=== PATIENT | female | born 1950 | race Caucasian/White ===

== ENCOUNTER 2021-10-28 10:46 | Outpatient (CLI) | payer MEDICARE, SELFPAY ==
--- NOTE | 2021-10-28 11:10 | XR_ITS ---
WS: [id number] SCREENING DEXA SCAN [place] CLINICAL INFORMATION: POST MENOPAUSAL COMPARISON: None. FINDINGS: The L1-L4 bone mineral density measures 0.972 g/cm2. This corresponds to a T score score of -1.7 and Z score of -0.6. Left femoral neck bone mineral density measures 0.825 g/cm2. This corresponds to a T score of -1.5 an d Z score of -0.4. Right femoral neck bone mineral density measures 0.800 g/cm2. This corresponds to a T score -1.6of an d Z score of -0.6. Mean femoral neck bone mineral density measures 0.813 g/cm2. This corresponds to a T score of -1.5 an d Z score of -0.5. XR/XR DEXA axial skeleton* [id number] IMPRESSION: Osteopenia. Patient's FRAX calculated 10 year probability for major osteoporotic fracture i s 20.2 % and osteoporotic hip fracture is 5.2%.
== END 2021-10-28 10:47 | disposition home or self-care (01) ==
PROVIDERS: PCP Physician Assistant; Visit Provider Physician Assistant
DX: Z78.0 Asymptomatic menopausal state (principal); M85.80 Other specified disorders of bone density and structure, unspecified site
CPT/HCPCS: 77080

== ENCOUNTER 2022-02-03 08:51 | Outpatient (CLI) | payer MEDICARE, SELFPAY ==
--- NOTE | 2022-02-03 09:02 | MM_ITS ---
WS: [id number] BILATERAL SCREENING DIGITAL BREAST TOMOSYNTHESIS MAMMOGRAM WITH CAD HISTORY: SCREENING COMPARISON: 07/07/2017, 09/22/2013 Bilateral CC and MLO views with tomosynthesis and synthetic mammography submitted. Computer aided det ection analyzed. Breast composition: There are scattered areas of fibroglandular density. No suspicious masses, microc alcifications or architectural distortion. Mild asymmetry in the posterior central LEFT breast is sta ble over multiple prior examinations. Asymmetry in the upper outer quadrant of the RIGHT breast is al so stable. MM/[place] [id number] IMPRESSION: BI-RADS: 2-Benign FOLLOW UP: 1 Year Follow-up
== END 2022-02-03 08:52 | disposition home or self-care (01) ==
LOC: RAD 08:55
PROVIDERS: PCP Physician Assistant; Visit Provider Physician Assistant
DX: Z12.31 Encounter for screening mammogram for malignant neoplasm of breast (principal)
CPT/HCPCS: 77063; 77067

== ENCOUNTER 2022-05-20 08:51 | Outpatient (RCR) | payer MEDICARE, OTHER, SELFPAY | END 2022-05-29 23:59 | disposition home or self-care (01) | LOC: SPT 08:51 | PROVIDERS: PCP Physician Assistant; Visit Provider Physician Assistant | DX: M54.50 Low back pain, unspecified (principal) | CPT/HCPCS: 97110; 97162 ==

== ENCOUNTER 2022-05-30 06:00 | Outpatient (RCR) | payer MEDICARE, OTHER, SELFPAY | END 2022-06-29 23:59 | disposition home or self-care (01) | LOC: SPT 06:00 | PROVIDERS: PCP Physician Assistant; Visit Provider Physician Assistant | DX: M54.50 Low back pain, unspecified (principal) | CPT/HCPCS: 97110 ==

== ENCOUNTER 2022-06-30 06:00 | Outpatient (RCR) | payer MEDICARE, OTHER, SELFPAY | END 2022-07-21 16:46 | disposition home or self-care (01) | LOC: SPT 06:00 | PROVIDERS: PCP Physician Assistant; Visit Provider Physician Assistant | DX: M54.50 Low back pain, unspecified (principal) | CPT/HCPCS: 97110; 97530 ==

== ENCOUNTER 2022-12-15 12:22 | Emergency (ER) | payer MEDICARE, OTHER, SELFPAY ==
[2022-12-15] VITALS (18 sets, daily range): BP systolic 140–187; BP diastolic 70–98; PULSE 70–90; RESP 15–23; TEMP 36.9; O2SAT 90–96
--- NOTE | 2022-12-15 12:48 | CT_ITS ---
WS: [email or web address] CT HEAD NONCONTRAST HISTORY: Symptoms of acute stroke TECHNIQUE: Contiguous axial imaging performed through the brain in 2.5 mm imaging. Bone and soft tiss ue windows. Sagittal and coronal reformats reviewed. All CT scans at [facility] use at least one of these dose optimization techniques: automated exposure control; mA and/or kV adjustment per pa tient size (includes targeted exams where dose is matched to clinical indication); or iterative recon struction. DLP: 1076.98 mGy-cm. COMPARISON: None available. Acute intracranial blood is identified. Acute blood products are noted in the posterior fossa surroun ding the brainstem and posterior to the cerebellum. Blood layering along the tentorium. Blood within the ambient, quadrigeminal and basal cisterns and extending through the fourth ventricle and over the tentorium. Intraventricular blood layering in the occipital horns the lateral ventricles and in the fourth ventricle. Mild atrophy. Sulcal effacement noted bilaterally with no midline shift. Ventricles: Ventricles are dilated. Temporal horns are dilated consistent with developing hydrocepha rossana. Paranasal sinuses: As visualized are clear. Mastoid air cells: Well pneumatized. Calvarium and scalp: Skull is intact with no soft tissue edema or swelling. CT/CT head thrombolytic [id number] IMPRESSION: 1. Acute intracranial hemorrhage. Perimesencephalic subarachnoid hemorrhage. A cute subarachnoid and intraventricular hemorrhage with probable components of s ubdural blood also. Blood is predominantly filling the quadrigeminal plate cist jay and within the basal and ambient cisterns. Additional acute blood products in the lateral ventricles surrounding the brainstem and fourth ventricle. 2. Cerebral edema. No midline shift. Notified Krish Hanks DO at 12/15/2022 1:18 PM.
--- NOTE | 2022-12-15 12:48 | CT_ITS ---
WS: [id number] CT CERVICAL SPINE HISTORY: fall TECHNIQUE: Contiguous 2.0 mm axial imaging performed through the entire cervical spine. Sagittal and coronal reformats also performed. All CT scans at [facility] use at least one of these dose o ptimization techniques: automated exposure control; mA and/or kV adjustment per patient size (include s targeted exams where dose is matched to clinical indication); or iterative reconstruction. DLP: 221.53 mGy.cm COMPARISON: None available. Normal cervical alignment. Craniocervical junction, atlantodental interval and C1-C2 alignment is nor mal. C2-C3: Normal. C3-C4: Normal. C4-C5: Osteophytic ridging. Mild facet arthritis. C5-C6: Mild osteophytic ridging and facet arthritis. Mild bilateral foraminal stenosis. C6-C7: Normal. C7-T1: Normal. Lung apices are clear. Mild atherosclerosis aorta. Acute blood products are identified surrounding th e brainstem and in the posterior fossa. These were described on the recent head CT. CT/CT cervical spin wo con* [id number] IMPRESSION: No acute cervical spine fracture.
--- NOTE | 2022-12-15 12:50 | XR_ITS ---
WS: [email or web address] Chest AP portable with right rib detail, 12/15/2022 Clinical Data: fall, right side pain, cough Comparison: Two-view chest, 01/01/2017. Findings: The lungs show no nodules, masses, or effusions. The heart is normal. No pneumonia or pneumothorax is seen. The aortic arch and descending thoracic aorta show tortuosity. There are monitor leads on the chest w all. The ribs are intact. No rib fractures seen. No subcutaneous emphysema is present. XR/XR ribs RT mn 3V w CXR1V [id number] Impression: Negative chest with right rib detail.
--- NOTE | 2022-12-15 12:51 | W.ED.NEUROSD ---
HPI - Neuro Symptoms/Deficit General: Chief Complaint: Neuro Symptoms/Deficit Stated Complaint: FALL/ AMS Time Seen by Provider: 12/15/22 12:39 History of Present Illness: Patient with unknown past medical history who presents emergency department by EMS with a pill bottle for Xanax and lisinopril, unknown past medical history for altered mental status. Patient was last seen well at 1430 yesterday and was spoken to on the phone by family at 1930 last night. Patient was found down at home by her mentally challenged family member this morning around 8 AM. She was found wedged between the bed and the wall with multiple episodes of vomiting, incontinent of bowel and bladder. EMS initially noted the patient to have a GCS of 9 with unreactive pupils bilaterally, blood glucose of 184. Per report from family at bedside the patient suffered a fall outside while gardening on Wednesday landing on the right side of her body complaining of right rib pain, no head, neck, back injury, no loss of consciousness. No other modifying factors, no other associated symptoms. Review of Systems General: Reports: 10 or more systems reviewed and unremarkable except in HPI and below NIH stroke score NIHSS: Level Of Consciousness - 1a: 1 Level Of Consciousness Questions - 1b: One Correct Level Of Consciousness Commands - 1c: Both Correct Best Gaze - 2: Normal Visual [place] - 3: No Visual Loss Facial Palsy - 4: Normal Motor Arm Right - 5: Drift Motor Arm Left - 5: No Drift Motor Leg Right - 6: Drift Motor Leg Left - 6: Drift Limb Ataxia - 7: Absent Sensory - 8: Normal Best Language - 9: No Aphasia Dysarthia - 10: Mild/Moderate Dysarthia Extinction And Inattention - 11: 0 Score: Total Score: 6 Physical Exam Const: GENERAL APPEARANCE: cooperative, disheveled, ill appearing and frail appearing ORIENTATION/CONSCIOUSNESS: Yes oriented to person, Yes oriented to place and Yes confused (Arousable to verbal stimuli); not oriented to time HENMT: COMMON NORMALS: normocephalic, atraumatic, hearing grossly normal bilaterally, external ears normal and Normal external nose present HEAD & SCALP: normocephalic and atraumatic FACE & SINUS: normal facial exam NOSE: Normal external nose present EXTERNAL EAR: Yes external ears normal MOUTH: Normal oral and palatal mucosa present THROAT: posterior oropharynx normal Eye: COMMON NORMALS: Equal, round and reactive pupils present and EOMs intact bilaterally PUPIL: Yes Equal, round and reactive pupils present Neck/C-Spine: COMMON NORMALS: supple GENERAL: Yes normal visual inspection CERVICAL SPINE: No Cervical spine tenderness and No step off deformity Chest: COMMONS NORMALS: normal inspection of the chest CHEST: Yes localized rib tenderness with anteroposterior compression (Right lateral) Resp: COMMON NORMALS: normal respiratory effort, No retractions, No use of accessory muscles and clear to auscultation bilaterally AUSCULTATION: clear to auscultation bilaterally Cardio: COMMON NORMALS: regular rate and Peripheral pulses 2+ throughout RATE: regular rate PERIPHERAL PULSES: Peripheral pulses 2+ throughout GI: COMMON NORMALS: non-tender INSPECTION: Yes abdominal distension PALPATION: Yes Guarding due to palpation present (GI) in the LLQ and in the RLQ : COMMON NORMALS: Yes no CVA tenderness BLADDER/KIDNEY EXAM: Yes no CVA tenderness Back/Pelvis: COMMON NORMALS: no CVA tenderness and thoracic and lumbar spine normal to inspection THORACIC SPINE/UPPER BACK: Yes normal to inspection LUMBAR SPINE/LOWER BACK: Yes normal to inspection Extremity: COMMON NORMALS: normal to inspection and full ROM GENERAL: No clubbing and No cyanosis Neuro: COMMON NORMALS: moves all extremities and no sensory deficits noted SENSORIUM/ORIENTATION: Yes oriented to person, Yes oriented to place and No oriented to time COORDINATION/BALANCE: [id number] test normal SPEECH: abnormal speech Details: slurred, no expressive aphasia and no receptive aphasia GAIT: Yes Unable to assess gait MOTOR EXAM: Abnormal motor strength present (Drift noted right arm, bilateral legs) COORDINATION: [id number] test normal Psych: APPEARANCE: Yes unkempt and Yes disheveled THOUGHT PROCESS: confused Skin: COMMON NORMALS: no rashes or lesions noted GENERAL SKIN EXAM: no rashes or lesions noted Course Reevaluation(s): Reevaluation #1: Patient becoming slightly combative when being moved to helicopter stretcher. Ordered 1 mg IV Ativan. Extensive discussion with helicopter crew regarding plan of intubation here versus possible intubation in the air should this be necessary, they are comfortable intubating the patient in the air, this seems unlikely at this time as the patient is redirectable and following commands. Time: 14:30 Consultations: Consultation #1: Call from radiology, subarachnoid bleed with bleeding around the basal cisterns at the base of the skull, significant edema and intraventricular bleeding, no evidence of shift. We will start Cardene and Keppra. Time: 13:08 Consultation #2: Family at bedside updated on diagnosis and prognosis, advised for need for transfer, family prefers to go to [facility], prefer [facility], will begin calling. Spoke with Dr. Smith neurology at bedside who agrees with plan for Cardene and Keppra, advises no need for mannitol or hypertonic saline at this time. Agrees with plan to hold off on intubation since the patient is following all commands. Confirmed with family that the patient takes no other medications aside from lisinopril and Xanax, no blood thinners. Time: 13:10 Consultation #3: Spoke with [facility] ER Dr. Menjivar who accepted the patient for transfer ER to ER, case discussed, no further recommendations. Time: 13:44 Vital Signs: Vital signs: Vital Signs Temperature 98.4 F 12/15/22 12:36 Pulse Rate 81 12/15/22 12:36 Respiratory Rate 18 12/15/22 12:36 Blood Pressure 187/82 12/15/22 12:36 Pulse Oximetry 92 12/15/22 12:36 Oxygen Delivery Me thod Room Air, Nasal C annula 12/15/22 12:36 MDM - Neuro Symptoms/Deficit Medical Decision Making Immediate concern for CVA versus intracranial bleed given patient's altered mental status, however she is outside the window for tPA, however she would be a candidate for thrombectomy, however her NIH score is relatively low, and much lower if you exclude the 2 points that she receives for bilateral leg weakness. More likely concern is for possible metabolic/infectious process causing patient's altered mental status especially given nausea, vomiting, and diarrhea, in the setting of abdominal distention and guarding, intra-abdominal process including bowel obstruction is considered. Will obtain CT head as well as C-spine given the patient's altered mental status and report of a fall on Wednesday, will obtain full set of labs, chest x-ray with right rib series, update Tdap, with plan for CT abdomen pelvis once patient's labs have resulted and we have confirmed no need for CT angiogram of the head. Lab Data 12/15/22 11:52 12/15/22 11:52 Radiology Impressions Cervical Spine CT 12/15/22 12:48 IMPRESSION: No acute cervical spine fracture. Head CT 12/15/22 12:48 IMPRESSION: 1. Acute intracranial hemorrhage. Perimesencephalic subarachnoid hemorrhage. Acute subarachnoid and intraventricular hemorrhage with probable components of subdural blood also. Blood is predominantly filling the quadrigeminal plate cistern and within the basal and ambient cisterns. Additional acute blood products in the lateral ventricles surrounding the brainstem and fourth ventricle. 2. Cerebral edema. No midline shift. Notified Krish Hanks DO at 12/15/2022 1:18 PM. Ribs X-Ray 12/15/22 12:50 Impression: Negative chest with right rib detail. Laboratory Results WBC 8.6 10^3/uL (4.0-10.0) 12/15/22 11:52 RBC 4.70 10^6/uL (4.1-5.3) 12/15/22 11:52 Hgb 13.6 g/dL (11.5-15.3) 12/15/22 11:52 Hct 42.5 % (37.0-47.0) 12/15/22 11:52 MCV 90.4 fl (81-99) 12/15/22 11:52 MCH 28.9 pg (28.0-34.0) 12/15/22 11:52 MCHC 32.0 g/dL (30.0-36.0) 12/15/22 11:52 RDW 13.2 % (12.1-15.1) 12/15/22 11:52 Plt Count 132 10^3/cmm (130-400) 12/15/22 11:52 MPV 12.9 fL (7.4-10.4) H 12/15/22 11:52 Neut % (Auto) 93.0 % 12/15/22 11:52 Lymph % (Auto) 3.6 % 12/15/22 11:52 [place] % (Auto) 2.8 % 12/15/22 11:52 Eos % (Auto) 0.0 % 12/15/22 11:52 Baso % (Auto) 0.1 % 12/15/22 11:52 Neut # (Auto) 8.00 10^3/uL (1.8-7.7) H 12/15/22 11:52 Lymph # (Auto) 0.3 10^3/uL (0.8-4.8) L 12/15/22 11:52 [place] # (Auto) 0.2 10^3/uL (0.2-0.9) 12/15/22 11:52 Eos # (Auto) 0.0 10^3/uL (0.0-0.8) 12/15/22 11:52 Baso # (Auto) 0.0 10^3/uL (0.0-0.1) 12/15/22 11:52 Nucleated RBC % (auto) 0 % 12/15/22 11:52 Nucleated RBCs # 0.0 /100WBC 12/15/22 11:52 PT 13.40 SECONDS (12.1-14.9) 12/15/22 11:52 INR 0.99 (0.8-1.2) 12/15/22 11:52 APTT 25.1 SECONDS (23.9-36.7) 12/15/22 11:52 Sodium 136 mmol/L (136-145) 12/15/22 11:52 Potassium 3.8 mmol/L (3.5-5.1) 12/15/22 11:52 Chloride 101 mmol/L (98-107) 12/15/22 11:52 Carbon Dioxide 23 mmol/L (22-29) 12/15/22 11:52 Anion Gap 15.8 (5-19) 12/15/22 11:52 BUN 11 mg/dL (8-23) 12/15/22 11:52 Creatinine 0.5 mg/dL (0.5-0.9) 12/15/22 11:52 GFR Calculation 122.0 mL/min (90-130) 12/15/22 11:52 Glucose 176 mg/dL (65-115) H 12/15/22 11:52 POC Glucose 165 mg/dL (70-110) H 12/15/22 13:06 Calculated Osmolality 286 mOsm/kg (285-295) 12/15/22 11:52 Lactic Acid 1.3 mmol/L (0.5-2.2) 12/15/22 13:50 Calcium 9.4 mg/dL (8.5-10.5) 12/15/22 11:52 Total Bilirubin 0.3 mg/dL (0.15-1.2) 12/15/22 11:52 AST 16 U/L (0-32) 12/15/22 11:52 ALT 12 U/L (0-33) 12/15/22 11:52 Alkaline Phosphatase 72 U/L (35-105) 12/15/22 11:52 Total Protein 7.3 g/dL (6.6-8.7) 12/15/22 11:52 Albumin 4.6 g/dL (3.5-5.2) 12/15/22 11:52 Globulin 2.7 g/dL (1.3-4.6) 12/15/22 11:52 Lipase 15 U/L (13-60) 12/15/22 11:52 Critical Care Time Critical Care Time: Critical Care Time: Yes Total Critical Care Time: 79 Attestation: The high probability of a clinically significant, sudden or life threatening deterioration, as referenced in this documentation, required my full and direct attention, intervention and personal management. The critical care time shown is in addition to time spent performing any reported separately billable procedures and includes the following: [x] Data and vital sign review and interpretation [x] Patient assessment, examination and intervention [x] Medication orders and management [x] Patient/Family updates as able [x] Care Coordination and Documentation. Discharge Plan Discharge Patient Disposition: Transfer to ED Clinical Impression: Subarachnoid hemorrhage, Decreased level of consciousness on examination Condition: Stable Prescriptions: No Action citalopram 10 mg tablet 10 mg PO DAILY lisinopril 20 mg tablet 20 mg PO DAILY alprazolam 0.25 mg tablet 0.25 mg PO BID PRN (Reason: Anxiety) amlodipine 10 mg tablet 10 mg PO DAILY Referrals: Selina Penn PA [Primary Care Provider] - Coding Level of Care Code ED Machinery Engineer for Katie Griffin
[2022-12-15 13:02] LABS: Basophils % 0.1 %; Hematocrit 42.5 % (37.0-47.0); Hemoglobin 13.6 g/dL (11.5-15.3); Lymphocytes # 0.3 10^3/uL (0.8-4.8); Lymphocytes % 3.6 %; Mean Corpuscular Hemoglobin 28.9 pg (28.0-34.0); Mean Corpuscular Volume 90.4 fl (81-99); Mean Platelet Volume 12.9 fL (7.4-10.4); Monocytes # 0.2 10^3/uL (0.2-0.9); Monocytes % 2.8 %; Nucleated Red Blood Cells % 0 %; Platelet Count 132 10^3/cmm (130-400); Red Cell Distribution Width 13.2 % (12.1-15.1); White Blood Count 8.6 10^3/uL (4.0-10.0)
--- NOTE | 2022-12-15 13:08 | ECG_ITS ---
[facility] Test Date: 2022-12-15 Pat Name: Beth Kohler Department: Room: Gender: Female Copy Center Operator: : 1950 Requested By: Krish Hanks Order Number: [id number] Nancy MD: Samson Morrison M.D. Measurements Intervals [place] Rate: 75 P: 39 TN: 169 QRS: -12 QRSD: 87 T: 30 QT: 390 QTc: 437 Interpretive Statements SINUS RHYTHM Compared to ECG 01/01/2017 18:21:52 No significant changes Electronically Signed On 12-15-2022 14:48:40 CDT by Samson Morrison M.D. [id number]
[2022-12-15 13:16] LABS: Glucose Point of Care 165 mg/dL (70-110)
[2022-12-15 13:21] LABS: INR 0.99 (0.8-1.2); Partial Thromboplastin Time 25.1 SECONDS (23.9-36.7)
--- NOTE | 2022-12-15 13:24 | P.CONIM_ITS ---
Providers/Reason For Consult Consulting Physician/Specialty*: Rodrigo Smith MD neurology and epilepsy Reason for Consult*: Code stroke and subarachnoid hemorrhage Primary Care Provider: Selina Penn History of Present Illness History of Present Illness Beth Kohler is a 72 year old female who has a history of borderline diabetes and hypertension. The patient lives with her physically and mentally challenged [id number] who is blind. According to the patient's son Anshu who was present in the emergency room, he last spoke with the patient around 9:30 PM on 12/14/2022. Patient's son stated that on 12/11/2022 the patient fell outside and landed on her right side. There was some questionable head trauma but the patient was able to get up and ambulate. On 12/13/2022 the son stated that the patient complained of some nausea and some difficulty breathing but she does have a history of bronchitis. This morning the son stated that he arrived at the patient's home and she was lying on her back next to her bed and mom laying and not following commands. Therefore the patient was brought to [facility] emergency room. In the emergency room, noncontrast head CT was obtained and revealed a subarachnoid hemorrhage in the quadrigeminal cistern area. Patient's NIH score 6 performed by the attending ER physician. Neurology consult was requested. Upon arrival, the patient was lying in bed in ER room 10. She was responsive to verbal stimuli and open her eyes. She was able to speak some and follow instructions she denied pain. Patient revealed no obvious facial weakness. Pupils 3 mm and reactive to light and accommodation extraocular movements intact without nystagmus. Visual gordillo were difficult to assess and determine at this time. Motor examination appeared to be grossly nonfocal the patient's upper extremities were 5/5 without signs of obvious ataxia. Patient was able to lift her lower extremities against gravity and against resistance.. Deep tendon reflexes grossly symmetrical plantar responses flexor bilaterally. There was no clonus. Sensory examination was intact to touch. Throat clear. Patient was able to protrude her tongue and there was bilateral elevation of her palate. Lungs appear to be clear heart regular rhythm and rate extremities were negative for clubbing or cyanosis. I agree with the ER physician treatment plan to transfer the patient to a facility that has neurosurgery to address the aneurysm. I agree with starting the patient on IV Keppra prior to transfer. Past medical history: Bronchitis Borderline diabetes mellitus Hypertension Drug allergies: Codeine type of reaction unknown Home medications: Xanax 0.25 mg p.o. twice daily Lisinopril 20 mg p.o. daily Habits: none Family history: Negative for aneurysms Review of Systems General: Reports: 10 or more systems reviewed and unremarkable except in HPI and below Resp: Reports: dyspnea GI: Reports: nausea Endo: Reports: other (Borderline diabetes) Medications/Allergies Home Medications Medication Instructions Recorded Confirmed Last Taken Type alprazolam 0.25 mg tablet 0.25 mg PO BID PRN Anxiety 12/15/22 12/15/22 Unknown History amlodipine 10 mg tablet 10 mg PO DAILY 12/15/22 12/15/22 Unknown History citalopram 10 mg tablet 10 mg PO DAILY 12/15/22 12/15/22 Unknown History lisinopril 20 mg tablet 20 mg PO DAILY 12/15/22 12/15/22 Unknown History Allergies Allergy/AdvReac Type Severity Reaction Status Date / Time codeine Allergy Unknown Verified 12/15/22 12:49 Vitals/I&O/Wt Last Vital Signs Temp 98.4 F 12/15/22 12:36 Pulse 81 12/15/22 12:36 Resp 18 12/15/22 12:36 BP 187/82 12/15/22 12:36 Pulse Ox 92 12/15/22 12:36 O2 Del Method Room Air, Nasal Cannula 12/15/22 12:36 Weight last 48 hrs Weight 176 lb Physical Exam Narrative: Currently the patient is lying in bed in a supine position. She is in no apparent distress at this time patient is arousable to verbal stimuli. She does follow commands. The patient does speak but has decreased verbal output. Eyes reveal pupils to be 3 mm round and reactive to light and accommodation. Extraocular movements intact there were no nystagmus. Visual gordillo difficult to assess via confrontation. Head appeared atraumatic. Neck supple without obvious meningeal signs. Cranial nerves II through XII revealed no obvious facial weakness. Patient had bilateral elevation of her palate and was able to protrude her tongue. Other cranial nerves also appear to be intact. Motor examination was grossly 5/5 bilaterally. Patient was able to elevate arms and legs against resistance. Deep tendon reflexes grossly symmetrical plantar responses flexor bilaterally there is no clonus. Sensory examination was intact to touch. Throat clear. Lungs clear. Heart regular rhythm and rate extremities were negative for clubbing cyanosis or edema. Abdomen soft bowel sounds positive. Data 12/15/22 11:52 12/15/22 11:52 A&P Assessment and plan (1) Subarachnoid hemorrhage: (2) Decreased level of consciousness on examination: Plan Assessment: 1. Subarachnoid hemorrhage, acute 2. Decreased level consciousness secondary to #1 3. Hypertension 4. Borderline diabetes mellitus Plan: 1. Agree with transfer to another facility for neurosurgical evaluation of subarachnoid hemorrhage to assess for aneurysm 2. Agree with current treatment plan Coding Level of Care Code 11541 Diagnoses Subarachnoid hemorrhage I60.9 Decreased level of consciousness on examination
[2022-12-15 13:25] LABS: Alanine Aminotransferase 12 U/L (0-33); Albumin Level 4.6 g/dL (3.5-5.2); Alkaline Phosphatase 72 U/L (35-105); Anion Gap 15.8 (5-19); Aspartate Amino Transferase 16 U/L (0-32); Blood Urea Nitrogen 11 mg/dL (8-23); Calcium 9.4 mg/dL (8.5-10.5); Carbon Dioxide 23 mmol/L (22-29); Chloride 101 mmol/L (98-107); Globulin 2.7 g/dL (1.3-4.6); Glucose 176 mg/dL (65-115); Lipase 15 U/L (13-60); Osmolality Calculated 286 mOsm/kg (285-295); Potassium 3.8 mmol/L (3.5-5.1); Sodium 136 mmol/L (136-145); Total Bilirubin 0.3 mg/dL (0.15-1.2); Total Protein 7.3 g/dL (6.6-8.7)
[2022-12-15 14:26] LABS: Lactic Sepsis W/Reflex 1.3 mmol/L (0.5-2.2)
[2022-12-15] MEDS: LORazepam 2 mg/mL INJ 1 mL 1 MG IVP (14:31)
[2022-12-15 15:03] LABS: Amphetamines Screen Urine Negative (Negative); Barbiturates Screen Urine Negative (Negative); Benzodiazepines Screen Urine Positive (Negative); Cocaine Screen Urine Negative (Negative); Opiate Screen Urine Negative (Negative); PCP Screen Urine Negative (Negative); THC Screen Urine Negative (Negative)
[2022-12-15 15:07] LABS: Blood Urine 3+ (Negative); Glucose Urine UA Trace (Normal); Ketones Urine 1+ (Negative); Nitrate Urine Negative (Negative); Protein Urine Trace (Negative); Urine Appearance Cloudy (CLEAR); Urine Color Yellow (Yellow); pH Urine 8 (5-7)
[2022-12-15 15:08] LABS: Add Urine Microscopic? YES; Bacteria Urine 1+ /hpf; Bilirubin Urine Neg (Negative); Leukocyte Esterase Urine Negative (Negative); RBC Urine 25-40 /hpf (0-2); Squamous Epithelial Cell Urine 0-4 /hpf (0-5); Sulfosalicylic Acid Urine Negative (Negative); Urobilinogen Urine Norm (Negative); WBC Urine 0-4 /hpf (0-5)
[2022-12-15 15:09] LABS: Add Urine Culture? Yes; Amorphous Sediment Urine 1+ /hpf
== END 2022-12-15 14:40 ==
PROVIDERS: Emergency Provider Emergency Medicine; PCP Physician Assistant
DX: I60.9 Nontraumatic subarachnoid hemorrhage, unspecified (principal); R40.4 Transient alteration of awareness
CPT/HCPCS: 36416; 51702; 70450; 71101; 72125; 80053; 80306; 81001; 82962; 83605; 83690; 85025; 85610; 85730; 86850; 86900; 87086; 93005; 96365; 96375; 99285; 99291; J1953; J2060

== ENCOUNTER 2024-01-07 10:14 | Outpatient (CLI) | payer MEDICARE, OTHER, SELFPAY ==
--- NOTE | 2024-01-07 10:21 | MM_ITS ---
WS: [email or web address] BILATERAL SCREENING DIGITAL TOMOSYNTHESIS MAMMOGRAM WITH CAD HISTORY: SCREENING COMPARISON: 02/03/2022, 07/07/2017 Bilateral CC and MLO views with tomosynthesis and synthetic mammography submitted. Computer aided det ection analyzed. Breast composition: There are scattered areas of fibroglandular density. No suspicious masses, microc alcifications or architectural distortion. Benign calcifications upper outer quadrant LEFT breast. MM/[place] [id number] IMPRESSION: BI-RADS: 2-Benign FOLLOW UP: 1 Year Follow-up
== END 2024-01-07 10:15 | disposition home or self-care (01) ==
LOC: RAD 10:14
PROVIDERS: PCP Physician Assistant; Visit Provider Physician Assistant
DX: Z12.31 Encounter for screening mammogram for malignant neoplasm of breast (principal)
CPT/HCPCS: 77063; 77067

== ENCOUNTER 2024-03-20 06:00 | Outpatient (RCR) | payer MEDICARE, OTHER, SELFPAY | END 2024-03-29 23:59 | disposition home or self-care (01) | LOC: SPT 06:00 | PROVIDERS: Visit Provider Physician Assistant | DX: M53.3 Sacrococcygeal disorders, not elsewhere classified (principal) | CPT/HCPCS: 97110; 97161 ==

== ENCOUNTER 2024-03-30 06:00 | Outpatient (RCR) | payer MEDICARE, OTHER, SELFPAY | END 2024-04-29 23:59 | disposition home or self-care (01) | LOC: SPT 06:00 | PROVIDERS: Visit Provider Physician Assistant | DX: M53.3 Sacrococcygeal disorders, not elsewhere classified (principal) | CPT/HCPCS: 97110 ==

== ENCOUNTER 2024-04-30 06:00 | Outpatient (RCR) | payer MEDICARE, OTHER, SELFPAY | END 2024-05-29 23:59 | disposition home or self-care (01) | LOC: SPT 06:00 | PROVIDERS: Visit Provider Physician Assistant | DX: M53.3 Sacrococcygeal disorders, not elsewhere classified (principal) | CPT/HCPCS: 97110 ==

== ENCOUNTER → 2024-06-15 13:52 | Outpatient (BNVA) | payer MEDICARE, OTHER, SELFPAY | PROVIDERS: Visit Provider Dermatology | DX: D48.5 Neoplasm of uncertain behavior of skin (principal); L57.0 Actinic keratosis; L72.0 Epidermal cyst; L73.8 Other specified follicular disorders; L82.1 Other seborrheic keratosis; L57.8 Other skin changes due to chronic exposure to nonionizing radiation | CPT/HCPCS: 11102; 17000; 99203 ==

== ENCOUNTER → 2024-07-06 08:16 | Outpatient (BNVA) | payer MEDICARE, OTHER, SELFPAY | PROVIDERS: Visit Provider Dermatology | DX: C44.319 Basal cell carcinoma of skin of other parts of face (principal); L82.0 Inflamed seborrheic keratosis | CPT/HCPCS: 13132; 17110; 17311 ==

== ENCOUNTER → 2024-12-27 10:55 | Outpatient (BNVA) | payer MEDICARE, OTHER, SELFPAY | PROVIDERS: Visit Provider Nurse Practitioner Family | DX: L73.8 Other specified follicular disorders (principal); L82.1 Other seborrheic keratosis; L57.8 Other skin changes due to chronic exposure to nonionizing radiation; X32.XXXA Exposure to sunlight, initial encounter; L81.4 Other melanin hyperpigmentation; Z08 Encounter for follow-up examination after completed treatment for malignant neoplasm; Z85.828 Personal history of other malignant neoplasm of skin; L82.0 Inflamed seborrheic keratosis; R20.9 Unspecified disturbances of skin sensation; R20.8 Other disturbances of skin sensation; R23.8 Other skin changes; Z78.9 Other specified health status; L57.0 Actinic keratosis | CPT/HCPCS: 17000; 17110; 99213 ==

== ENCOUNTER → 2025-06-28 09:17 | Outpatient (BNVA) | payer MEDICARE, OTHER, SELFPAY | PROVIDERS: Visit Provider Nurse Practitioner Family | DX: L73.8 Other specified follicular disorders (principal); L82.1 Other seborrheic keratosis; D18.01 Hemangioma of skin and subcutaneous tissue; L27.8 Dermatitis due to other substances taken internally; X32.XXXA Exposure to sunlight, initial encounter; L81.4 Other melanin hyperpigmentation; Z08 Encounter for follow-up examination after completed treatment for malignant neoplasm; Z85.828 Personal history of other malignant neoplasm of skin; L82.0 Inflamed seborrheic keratosis; R20.8 Other disturbances of skin sensation; L53.8 Other specified erythematous conditions; B07.8 Other viral warts; L57.0 Actinic keratosis | CPT/HCPCS: 17000; 17110; 99213 ==

== ENCOUNTER 2025-07-11 10:39 | Outpatient (CLI) | payer MEDICARE, OTHER, SELFPAY ==
--- NOTE | 2025-07-11 10:44 | MM_ITS ---
WS: [email or web address] BILATERAL SCREENING DIGITAL TOMOSYNTHESIS MAMMOGRAM WITH CAD HISTORY: SCREENING COMPARISON: 01/07/2024, 02/03/2022, 07/07/2017, 06/03/2009 Bilateral CC and MLO views with tomosynthesis and synthetic mammography submitted. Computer aided detection analyzed. Breast composition: The breasts are heterogeneously dense, which may obscure small masses. No suspicious masses, microcalcifications or architectural distortion. There is an area of subtle distortion noted in the posterior LEFT CC which has been present on multiple prior examinations with no change. Benign calcifications upper outer quadrant LEFT breast. MM/MM scr BI tomosynthesis [id number] IMPRESSION: BI-RADS: 2 - Benign FOLLOW UP: 1 Year Follow-up
== END 2025-07-11 10:40 | disposition home or self-care (01) ==
PROVIDERS: PCP Physician Assistant; Visit Provider Physician Assistant
DX: Z12.31 Encounter for screening mammogram for malignant neoplasm of breast (principal); R92.333 Mammographic heterogeneous density, bilateral breasts; R92.1 Mammographic calcification found on diagnostic imaging of breast; N64.89 Other specified disorders of breast
CPT/HCPCS: 77063; 77067